=== PATIENT | male | born 1950 | race Caucasian/White ===

== ENCOUNTER → 2020-10-10 | Outpatient (CLI) | payer OTHER ==
[2020-10-10 15:45] LABS: ALANINE AMINOTRANSFERASE 38 U/L (12-78); ALBUMIN 4.1 g/dL (3.4-5.0); ANION GAP 7 mmol/L (5-15); CALCIUM 9.1 mg/dL (8.5-10.1); CHLORIDE 105 mmol/L (98-107); CREATININE 1.47 mg/dL (0.7-1.3)
[2020-10-10 15:47] LABS: ALKALINE PHOSPHATASE 93 U/L (45-117); BILIRUBIN,TOTAL 0.5 mg/dL (0.2-1.0)
== END | disposition home or self-care (01) ==
LOC: STAR 14:33
PROVIDERS: ATTEND Urology
DX: Z01.818 Encounter for other preprocedural examination (principal); N20.0 Calculus of kidney; R94.31 Abnormal electrocardiogram [ECG] [EKG]; Z20.822 Contact with and (suspected) exposure to COVID-19
CPT/HCPCS: 36415; 80053; 93005; U0003; U0005

== ENCOUNTER 2020-10-16 05:57 | Day surgery (SDC) | payer OTHER ==
[~2020-10-16] VITALS: Ht 182.9 cm; Wt 114.0 kg
[2020-10-16] MEDS ORDERED: LIDOCAINE-MPF 1%, 2ML ONE (06:38)
[2020-10-16] MEDS ORDERED: CHLORHEXIDINE 15 ML UDC ONE (06:38)
[2020-10-16] MEDS ORDERED: DIAZEPAM 5 MG/ML, 2ML IVPush PRN (07:00)
[2020-10-16] MEDS ORDERED: LIDOCAINE-MPF 1%, 2ML INFIL ONE (07:00)
[2020-10-16] MEDS ORDERED: OXYcodone 5 MG/5 ML ORAL.SOL UDC PO PRN (07:00)
[2020-10-16] MEDS ORDERED: hydrALAzine 20 MG/ML, 1ML IV PRN (07:00)
[2020-10-16] MEDS ORDERED: METOCLOPRAMIDE 5 MG/ML, 2ML IVPush PRN (07:00)
[2020-10-16] MEDS ORDERED: PROMETHAZINE 25 MG/ML, 1ML IVPush PRN (07:00)
[2020-10-16] MEDS ORDERED: KETOROLAC 30 MG/1 ML IVPush PRN (07:00)
[2020-10-16] MEDS ORDERED: EPHEDRINE 50 MG/ML, 1ML IVPush PRN (07:00)
[2020-10-16] MEDS ORDERED: ONDANSETRON 2MG/ML, 2ML IVPush PRN (07:00)
[2020-10-16] MEDS ORDERED: HYDROmorphone 1 MG/ML, 1ML INJ IVPush PRN (07:00)
[2020-10-16] MEDS ORDERED: CHLORHEXIDINE 15 ML UDC PO ONE (07:00)
[2020-10-16] MEDS ORDERED: DIPHENHYDRAMINE 50 MG/ML, 1ML IVPush PRN (07:00)
[2020-10-16] MEDS ORDERED: LACTATED RINGERS 1,000 ML IV SCH (07:00)
[2020-10-16] MEDS ORDERED: HALOPERIDOL 5 MG/ML IV PRN (07:00)
[2020-10-16] MEDS ORDERED: FENTANYL PF 100 MCG/2ML IV PRN (07:00)
[2020-10-16] MEDS ORDERED: ACETAMINOPHEN 325 MG TABLET PO PRN (07:00)
[2020-10-16] MEDS ORDERED: METOPROLOL 1 MG/ML, 5ML IV PRN (07:00)
[2020-10-16] MEDS ORDERED: LABETALOL 5MG/ML, 20ML IV PRN (07:00)
[2020-10-16] MEDS ORDERED: AMLO-211 PO (07:14)
[2020-10-16] MEDS ORDERED: LOSA25TA25 PO (07:14)
[2020-10-16] MEDS ORDERED: METO25TA35 PO (07:14)
[2020-10-16] MEDS ORDERED: PIOG15TA69 PO (07:14)
[2020-10-16] MEDS ORDERED: FENTANYL PF 250 MCG/5ML ONE (07:14)
[2020-10-16] MEDS ORDERED: ALLO300T PO (07:14)
[2020-10-16] MEDS ORDERED: PROPOFOL 10 MG/ML, 20ML ONE (07:27)
[2020-10-16] MEDS ORDERED: CEFAZOLIN 1,000 MG ONE (07:27)
[2020-10-16] MEDS ORDERED: PHENYLEPHRINE 10 MG/ML ONE (07:27)
[2020-10-16] MEDS ORDERED: EPHEDRINE 50 MG/ML, 1ML ONE (07:27)
[2020-10-16] MEDS ORDERED: ONDANSETRON 2MG/ML, 2ML ONE (07:27)
[2020-10-16] MEDS ORDERED: HYDROcodone/APAP 5/325 TABLET PO PRN (09:30)
[2020-10-16] MEDS ORDERED: ONDANSETRON 2MG/ML, 2ML IV PRN (09:30)
== END 2020-10-16 11:20 | disposition home or self-care (01) ==
LOC: OUT 05:57
PROVIDERS: ATTEND Urology
DX: N20.0 Calculus of kidney (principal); E11.9 Type 2 diabetes mellitus without complications; I10 Essential (primary) hypertension; M10.9 Gout, unspecified; E66.9 Obesity, unspecified; Z68.34 Body mass index [BMI] 34.0-34.9, adult; Z79.899 Other long term (current) drug therapy; Z98.890 Other specified postprocedural states
CPT/HCPCS: 50590; 82962; J0690; J2370; J2405; J2704; J3010; J7120